=== PATIENT | female | born 1985 | race African-American/Black ===

== ENCOUNTER 2017-05-11 19:15 | Emergency (ER) | payer MEDICAID ==
--- NOTE | 2017-05-11 21:18 | RAD ---
HISTORY: Left calf pain x2 weeks in a woman who is 17 weeks TECHNIQUE: Multiple transverse and longitudinal ultrasound images were obtained of the veins of the left lower extremity using grayscale, color Doppler, and spectral Doppler imaging with and without compression and with augmentation. FINDINGS: VEINS: The common femoral vein, deep femoral vein, femoral vein and popliteal vein are compressible throughout their course, with normal flow on color Doppler imaging and normal response to augmentation on spectral Doppler imaging. SOFT TISSUES: Grossly normal. No large popliteal fossa cyst was identified. IMPRESSION: No sonographic evidence of deep vein thrombosis.
--- NOTE | 2017-05-11 21:29 | ED ---
Lower Extremity - HPI Summary HPI Summary: 31F presents with left calf pain for two weeks. She states she feel onto her knee two weeks ago. Has been able to ambulate since. She has a family history of blood clots. She is currently 17 weeks . no chest pain or SOB. states veins feel more prominent. ache to left posterior calf and knee. admits to swelling of leg. no recent travel. no numbness or tingling. able to ambulate on it. - History of Current Complaint Chief Complaint: EDExtremityLower Stated Complaint: PAINFUL LT KNEE & CALF PAIN-SENT FROM [place] Time Seen by Provider: 05/11/17 20:23 Hx Last Menstrual Period: 07/19/13 Pain Intensity: 8 - Allergies/Home Medications Allergies/Adverse Reactions: Allergies Allergy/AdvReac Type Severity Reaction Status Date / Time No Known Allergies Allergy Verified 05/11/17 19:30 PMH/Surg Hx/FS Hx/Imm Hx Endocrine/Hematology History: Denies: Hx Diabetes, Hx Thyroid Disease Cardiovascular History: Denies: Hx Hypertension, Hx Pacemaker/ICD Respiratory History: Denies: Hx Asthma, Hx Chronic Obstructive Pulmonary Disease (COPD) GI History: Denies: Hx Ulcer History: Denies: Hx Renal Disease Musculoskeletal History: Reports: Hx Arthritis Sensory History: Denies: Hx Hearing Aid Neurological History: Reports: Other Neuro Impairments/Disorders - ENCEPHALOPATHY Psychiatric History: Denies: Hx Panic Disorder Infectious Disease History: No Infectious Disease History: Denies: Hx Clostridium Difficile, Hx Hepatitis, Hx Human Immunodeficiency Virus (HIV), Hx of Known/Suspected MRSA, Hx Shingles, Hx Tuberculosis, Hx Known/ Suspected VRE, Hx Known/Suspected VRSA, History Other Infectious Disease, Traveled Outside the [place] in Last 30 Days - Family History Known Family History: Positive: Cardiac Disease, Diabetes, Blood Disorder - Positive DVT - Social History Alcohol Use: None Hx Substance Use: No Substance Use Type: Reports: None Hx Tobacco Use: No Smoking Status (MU): Never Smoked Tobacco Review of Systems Negative: Fever Negative: Chest Pain Negative: Shortness Of Breath Positive: Myalgia - left leg pain All Other Systems Reviewed And Are Negative: Yes Physical Exam Triage Information Reviewed: Yes Vital Signs On Initial Exam: Initial Vitals Temp Pulse Resp BP Pulse Ox 97.8 F 94 14 119/68 99 05/11/17 19:26 05/11/17 19:26 05/11/17 19:26 05/11/17 19:26 05/11/17 19:26 Vital Signs Reviewed: Yes Appearance: Positive: Well-Appearing Skin: Positive: Warm, Dry Head/Face: Positive: Normal Head/Face Inspection Eyes: Positive: Normal, Conjunctiva Clear Respiratory/Lung Sounds: Positive: Clear to Auscultation, Breath Sounds Present Cardiovascular: Positive: Normal, RRR Musculoskeletal: Positive: Strength/ROM Intact - right knee pain, Wayne Sign Right, Other - good pulses, capillary refill<2 secs, nontender patella, fibula head Neurological: Positive: Normal Gait Psychiatric: Positive: Normal - [place] Coma Scale Coma Scale Total: 15 Diagnostics - Vital Signs Vital Signs Temp Pulse Resp BP Pulse Ox 05/11/17 19:26 97.8 F 94 14 119/68 99 - Laboratory Lab Statement: Any lab studies that have been ordered have been reviewed, and results considered in the medical decision making process. - Ultrasound No standard instances Ultrasound Interpretation: No Acute Changes Ultrasound Interpretation Completed By: Radiologist Lower Extremity Course/Dx - Course Course Of Treatment: 31F presents with left calf pain for two weeks. She states she feel onto her knee two weeks ago. Has been able to ambulate since. She has a family history of blood clots. She is currently 17 weeks . no chest pain or SOB. states veins feel more prominent. ache to left posterior calf and knee. admits to swelling of leg. no recent travel. no numbness or tingling. on exam nontender fibula head and patella so according to [place] rules no imaging knees required. u/s normal. patient understands and agrees with plan. - Diagnoses Differential Diagnosis/HQI/PQRI: Positive: DVT, Fracture (Closed), Sprain Provider Diagnoses: Left leg pain Discharge - Discharge Plan Condition: Good Disposition: HOME Patient Education Materials: Leg Pain (ED) Referrals: No Primary Care Phys,NOPCP [Primary Care Provider] - Additional Instructions: Place ice/heat on area Take Tylenol for pain every 6 hours Use compression socks Follow up with primary within 5 days Return to ED if develop any new or worsening symptoms
[2017-05-11 22:09] VITALS: BP 112/68
== END 2017-05-11 22:08 | disposition home or self-care (01) ==
LOC: ED 19:15
DX: O26.892 Other specified pregnancy related conditions, second trimester (principal); Z3A.17 17 weeks gestation of pregnancy; M79.662 Pain in left lower leg
CPT/HCPCS: 99282